=== PATIENT | male | born 1990 | race Two or more races ===

== ENCOUNTER 2023-09-01 20:12 | Emergency (ER) | payer SELFPAY ==
[2023-09-01 20:17] VITALS: BP 159/84; PULSE 78; RESP 20; TEMP 98.1; BMI 29.9
== END 2023-09-01 20:40 | disposition home or self-care (01) ==
LOC: JERFT 20:12
DX: K03.81 Cracked tooth (principal); K08.89 Other specified disorders of teeth and supporting structures
CPT/HCPCS: 99283-25

== ENCOUNTER 2023-09-01 21:48 | Emergency (ER) | payer SELFPAY ==
[2023-09-01 22:02] VITALS: BP 169/88; PULSE 82; RESP 20; TEMP 97.9; BMI 29.9
== END 2023-09-02 00:22 | disposition home or self-care (01) ==
LOC: JER 21:48 → JERFT 21:48 → JER 09-02 00:22
DX: K03.81 Cracked tooth (principal); K08.89 Other specified disorders of teeth and supporting structures
CPT/HCPCS: 99282-25